=== PATIENT | male | born 1975 | race Two or more races ===

== ENCOUNTER 2018-08-04 09:55 | Emergency (ER) | payer MEDICARE, OTHER ==
[~2018-08-04] VITALS: Ht 162.6 cm; Wt 79.4 kg
[2018-08-04 12:38] VITALS: BP 128/88
[2018-08-04] MEDS ORDERED: cefTRIAXone SOD 1,000 MG VL IM ONE (13:00)
[2018-08-04] MEDS ORDERED: diphenhdrAMINE HCL 50 MG/1 ML VL IM ONE (13:00)
== END 2018-08-04 14:28 | disposition home or self-care (01) ==
LOC: ER 09:55
DX: J03.90 Acute tonsillitis, unspecified (principal); K57.30 Diverticulosis of large intestine without perforation or abscess without bleeding; N20.0 Calculus of kidney; F17.210 Nicotine dependence, cigarettes, uncomplicated
CPT/HCPCS: 71046; 74176; 96372; 99284; J0696; J1200